=== PATIENT | female | born 1980 | race Hispanic/Latino ===

== ENCOUNTER 2017-09-29 19:58 | Emergency (ER) | payer MEDICAID ==
[2017-09-29] MEDS ORDERED: SIMETHICONE 80 MG TAB.CHEW ONE (20:13)
[2017-09-29] MEDS ORDERED: HYOSCYAMINE SULFATE 0.125 MG TAB.SUBL SL ONE (20:13)
[2017-09-29 20:31] LABS: BASOPHILS % (AUTO) 0.4 % (0.0-5.0); EOSINOPHILS % (AUTO) 0.3 % (0.0-8.0); HEMATOCRIT 39.9 % (36-48); LYMPHOCYTES % (AUTO) 14.1 % (21.0-51.0); MEAN CORPUSCULAR HGB CONC 34.4 g/dL (32.0-36.0); MEAN CORPUSCULAR VOLUME 84.3 fL (79-99); MONOCYTES % (AUTO) 5.3 % (3.0-13.0); NEUTROPHILS % (AUTO) 79.9 % (40.0-77.0); PLATELET COUNT (AUTO) 238 K/uL (130-400); RED BLOOD CELL COUNT(AUTO) 4.73 MIL/uL (4.00-5.50); WHITE BLOOD COUNT (AUTO) 9.4 K/uL (4.8-10.8)
[2017-09-29 20:41] LABS: CREATININE 0.7 mg/dL (0.5-1.5); POTASSIUM 3.3 mmol/L (3.5-5.1)
[2017-09-29 20:46] LABS: ALBUMIN 3.4 g/dL (3.5-5.0); BILIRUBIN,TOTAL 0.4 mg/dL (0.2-1.0); TOTAL PROTEIN, SERUM 7.5 g/dL (6.0-8.3)
== END 2017-09-29 22:06 | disposition home or self-care (01) ==
LOC: EDH 19:58
DX: E87.6 Hypokalemia (principal); R10.84 Generalized abdominal pain; R19.7 Diarrhea, unspecified; R50.9 Fever, unspecified; Z90.49 Acquired absence of other specified parts of digestive tract
CPT/HCPCS: 36415; 80053; 85025

== ENCOUNTER 2018-04-16 07:11 | Day surgery (SDC) | payer MEDICAID ==
[2018-04-14 13:05] VITALS: BP 113/70
[2018-04-14 13:07] LABS: BASOPHILS % (AUTO) 0.4 % (0.0-5.0); EOSINOPHILS % (AUTO) 1.1 % (0.0-8.0); HEMATOCRIT 41.2 % (36-48); LYMPHOCYTES % (AUTO) 34.8 % (21.0-51.0); MEAN CORPUSCULAR HEMOGLOBIN 29.8 pg (27.0-33.0); MEAN CORPUSCULAR HGB CONC 34.6 g/dL (32.0-36.0); MEAN CORPUSCULAR VOLUME 86.1 fL (79-99); MONOCYTES % (AUTO) 6.6 % (3.0-13.0); NEUTROPHILS % (AUTO) 57.1 % (40.0-77.0); PLATELET COUNT (AUTO) 255 K/uL (130-400); RED BLOOD CELL COUNT(AUTO) 4.78 MIL/uL (4.00-5.50); RED CELL DISTRIBUTION WIDTH 12.9 % (11.0-15.5); WHITE BLOOD COUNT (AUTO) 7.9 K/uL (4.8-10.8)
[2018-04-16] VITALS (16 sets, daily range): BP systolic 103–122; BP diastolic 62–74
[~2018-04-16] VITALS: Ht 165.1 cm; Wt 79.7 kg
[2018-04-16] MEDS ORDERED: MIDAZOLAM HCL 1 MG/ML 2ML VIAL ONE (07:36)
[2018-04-16] MEDS ORDERED: DEXAMETHASONE SOD PHOSPHATE 10MG/ML 1ML VIAL ONE (07:36)
[2018-04-16] MEDS ORDERED: GLYCOPYRROLATE 1 MG/5 ML SYRINGE ONE (07:36)
[2018-04-16] MEDS ORDERED: LIDOCAINE PF 2% 5ML ABBOJECT ONE ×2 (07:36→07:38)
[2018-04-16] MEDS ORDERED: PROPOFOL 10 MG/ML 20ML VIAL IV ONE (07:36)
[2018-04-16] MEDS ORDERED: FENTANYL CITRATE PF 50 MCG/1 ML 2ML VIAL ONE (07:37)
[2018-04-16] MEDS ORDERED: ONDANSETRON HCL 4 MG/2 ML VIAL ONE (07:37)
[2018-04-16] MEDS ORDERED: NEOSTIGMINE 5MG/5ML SYR IV ONE (07:37)
[2018-04-16] MEDS ORDERED: ROCURONIUM 10MG/1ML SYR 10 MG/ML ML ONE (07:37)
[2018-04-16] MEDS ORDERED: METOCLOPRAMIDE 10 MG/2 ML VIAL ONE (07:38)
[2018-04-16] MEDS ORDERED: LIDOCAINE HCL 2% JELLY 5 ML ONE (07:42)
[2018-04-16] MEDS ORDERED: CALDOLOR 800MG+NS 250ML 250 ML IV ONE (08:00)
[2018-04-16] MEDS ORDERED: LACTATED RINGERS 1000ML 1,000 ML IV ONE (08:03)
[2018-04-16] MEDS ORDERED: STRONG IODINE SOLUTION 30ML BOTTLE ONE ×2 (08:05→08:26)
[2018-04-16] MEDS ORDERED: MEPERIDINE-PF 25 MG/ML SYG ONE ×2 (10:29→10:40)
== END 2018-04-16 12:10 | disposition home or self-care (01) ==
LOC: SUH 07:11 → DAH 07:11 → SUH 12:10
DX: N87.1 Moderate cervical dysplasia (principal); Z98.890 Other specified postprocedural states; Z79.899 Other long term (current) drug therapy; E66.9 Obesity, unspecified
CPT/HCPCS: 36415; 57520; 84702; 85025; 88307; 96365; A4351; A4510; A4600; J1100; J1741; J2001 ×2; J2175 ×2; J2250; J2405; J2704; J2710; J2765; J3010; J7120 ×2; J3490

== ENCOUNTER 2018-07-31 20:06 | Emergency (ER) | payer MEDICAID ==
[2018-07-31] MEDS ORDERED: AMOXICILLIN 500 MG CAPSULE PO ONE (21:02)
== END 2018-07-31 21:06 | disposition home or self-care (01) ==
LOC: EDH 20:06
DX: S02.5XXA Fracture of tooth (traumatic), initial encounter for closed fracture (principal); X58.XXXA Exposure to other specified factors, initial encounter; Y93.89 Activity, other specified; Y92.89 Other specified places as the place of occurrence of the external cause; Y99.8 Other external cause status

== ENCOUNTER 2022-12-02 12:38 | Emergency (ER) | payer MEDICAID, OTHER ==
[~2022-12-02] VITALS: Ht 167.6 cm; Wt 95.3 kg
[2022-12-02 13:12] LABS: BASOPHILS % (AUTO) 0.3 % (0.0-5.0); EOSINOPHILS % (AUTO) 1.3 % (0.0-8.0); LYMPHOCYTES % (AUTO) 26.6 % (21.0-51.0); MEAN CORPUSCULAR HEMOGLOBIN 28.6 pg (27.0-33.0); MEAN CORPUSCULAR HGB CONC 33.6 g/dL (32.0-36.0); MEAN CORPUSCULAR VOLUME 85.2 fL (79-99); MONOCYTES % (AUTO) 5.1 % (3.0-13.0); NEUTROPHILS % (AUTO) 65.9 % (40.0-77.0); PLATELET COUNT (AUTO) 381 K/uL (130-400); RED BLOOD CELL COUNT(AUTO) 4.93 MIL/uL (4.00-5.50); RED CELL DISTRIBUTION WIDTH 12.5 % (11.0-15.5); WHITE BLOOD COUNT (AUTO) 11.6 K/uL (4.8-10.8)
[2022-12-02 13:14] LABS: APPEARANCE,URINE CLOUDY (CLEAR); BILIRUBIN,URINE NEGATIVE (NEGATIVE); COLOR,URINE YELLOW (YELLOW); GLUCOSE, URINE (UA) NEGATIVE (NEGATIVE); KETONES,URINE NEGATIVE (NEGATIVE); LEUKOCYTE ESTERASE ,URINE 75 Leu/uL (NEGATIVE); NITRATE,URINE NEGATIVE (NEGATIVE); OCCULT BLOOD,URINE SMALL (NEGATIVE); PROTEIN,URINE 70 mg/dL (NEGATIVE); UROBILINOGEN,URINE 0.2 mg/dL (0.2-1.0)
[2022-12-02 13:15] LABS: HCG,QUALITATIVE URINE NEGATIVE (NEGATIVE)
[2022-12-02 13:18] LABS: BACTERIA,URINE FEW /HPF (None Seen); MUCUS,URINE MANY LPF (None Seen); SQUAMOUS EPITHELIAL CELL,UR MANY /HPF (0-2)
[2022-12-02 13:20] LABS: CREATININE 0.9 mg/dL (0.5-1.5); POTASSIUM 3.6 mmol/L (3.5-5.1)
[2022-12-02 13:25] LABS: ALBUMIN 3.5 g/dL (3.5-5.0); TOTAL PROTEIN, SERUM 7.7 g/dL (6.0-8.3)
[2022-12-02] MEDS ORDERED: CIPR750T17 PO (15:18)
[2022-12-02] MEDS ORDERED: ONDA4TAB10 PO (15:18)
[2022-12-02] MEDS ORDERED: TRAM50TA4 PO (15:18)
[2022-12-02] MEDS ORDERED: LOPE2TAB26 PO (15:18)
[2022-12-02 15:51] VITALS: BP 138/88
== END 2022-12-02 15:57 | disposition home or self-care (01) ==
LOC: EDH 12:38
DX: G89.29 Other chronic pain (principal); M54.50 Low back pain, unspecified; K52.9 Noninfective gastroenteritis and colitis, unspecified; M19.90 Unspecified osteoarthritis, unspecified site; Z90.49 Acquired absence of other specified parts of digestive tract
CPT/HCPCS: 36415; 80053; 81001; 81025; 83690; 85025; 87088

== ENCOUNTER 2024-04-18 04:42 | Emergency (ER) | payer MEDICAID, OTHER ==
[~2024-04-18] VITALS: Ht 167.6 cm; Wt 104.3 kg
[~2024-04-18 04:42] MED LIST: CIPR750T17 PO; LOPE2TAB26 PO; ONDA-243 PO; TRAM50TA4 PO
[2024-04-18 05:37] LABS: BASOPHILS # (AUTO) 0.03 K/uL (0.00-0.20); BASOPHILS % (AUTO) 0.3 % (0.0-5.0); EOSINOPHILS # (AUTO) 0.07 K/uL (0.00-0.70); EOSINOPHILS % (AUTO) 0.6 % (0.0-8.0); HEMATOCRIT 41.6 % (36-48); IMMATURE GRANULOCYTE ABSOLUTE 0.07 K/uL (0-1); LYMPHOCYTES # (AUTO) 1.8 K/uL (1.0-4.8); LYMPHOCYTES % (AUTO) 14.9 % (21.0-51.0); MEAN CORPUSCULAR HEMOGLOBIN 28.5 pg (27.0-33.0); MEAN CORPUSCULAR HGB CONC 33.4 g/dL (32.0-36.0); MEAN CORPUSCULAR VOLUME 85.2 fL (79-99); MONOCYTES # (AUTO) 0.8 K/uL (0.1-1.0); MONOCYTES % (AUTO) 6.6 % (3.0-13.0); NEUTROPHILS # (AUTO) 9.2 K/uL (1.8-7.7); PLATELET COUNT (AUTO) 268 K/uL (130-400); RED BLOOD CELL COUNT(AUTO) 4.88 MIL/uL (4.00-5.50); RED CELL DISTRIBUTION WIDTH 12.5 % (11.0-15.5); WHITE BLOOD COUNT (AUTO) 11.9 K/uL (4.8-10.8)
[2024-04-18 05:46] LABS: CREATININE 0.8 mg/dL (0.5-1.0); POTASSIUM 4.1 mmol/L (3.5-5.1); RAPID GROUP A STREP negative (NEGATIVE)
[2024-04-18 05:52] LABS: SARS-CoV-2, RNA, NAAT NEGATIVE SARS CoV-2 (NEGATIVE)
[2024-04-18 05:56] LABS: INFLUENZA TYPE A Negative For Type A (NEGATIVE); INFLUENZA TYPE B Negative For Type B (NEGATIVE)
[2024-04-18 06:04] LABS: B-TYPE NATRIURETIC PEPTIDE 5 pg/mL (0-100)
[2024-04-18] MEDS: Solu-medROL 125MG VIAL IVP ONE (06:04)
[2024-04-18] MEDS: 0.9%NACL 1000ML 1,000 ML IV ONE (06:04)
--- NOTE | 2024-04-18 06:26 | ERN ---
General Chief Complaint: Multiple Complaints Stated Complaint: FEVER, BODY ACHES Time Seen by MD: 04:46 History of Present Illness Initial Comments Ms. Welch is a very pleasant 43-year-old female who comes in today with a chief complaint of fever chills cough for the last 3 days. Patient went to outside facility where she was swabbed and was negative for any viral infections according to her. Patient reports that they did not do any extensive workup. Patient comes in with recurrent fevers cough and rib pain. Allergies: Coded Allergies: No Known Drug Allergies (Unverified Allergy, Unknown, 04/14/18) Home Meds Active Scripts Tramadol Hcl (Tramadol HCl) 50 Mg Tablet, 50 MG PO QID for pain, #10 TAB 0 Refills Prov:ROMEL MORALES MD 12/02/22 Loperamide HCl (Loperamide) 2 Mg Tablet, 2 MG PO 5X/DAY for with every diarrhea, #12 TAB 0 Refills Prov:ROMEL MORALES MD 12/02/22 Ondansetron (Ondansetron Odt) 4 Mg Tab.rapdis, 4 MG PO Q6H for nausea, #10 TAB 0 Refills Prov:ROMEL MORALES MD 12/02/22 Ciprofloxacin HCl (Cipro) 750 Mg Tab, 750 MG PO BID for 3 Days, #6 TAB 0 Refills Prov:ROMEL MORALES MD 12/02/22 Past Medical History Past Medical History: Arthritis Medical History Other: KIDNEY CYST, CHRONIC BACK PAIN Past Surgical History: Appendectomy Social History Social History: Negative ROS Dictation Constitutional: Positive for fever Eyes: Negative for injury, pain,redness, and discharge ENT: Negative for injury,pain or swelling Cardiovascular: Negative for chest pain, palpitations, and edema Respiratory: Positive for cough Abdomen/GI: Negative for abdominal pain, nausea, vomiting, diarrhea, and constipation Back: Negative for injury and pain : Negative for injury, bleeding and discharge MS/Extremity: Negative for injury and deformity Skin: Negative for rash, and discoloration Neuro: Negative for headache, weakness, numbness, tingling, and seizure Psych: Negative for suicide ideation, homicidal ideation, and hallucinations Physical Exam Physical Exam Dictation General: awake, alert, NAD Head/Face: Normocephalic, atraumatic Eyes: PERRL, EOMI, vision at baseline ENT: oral cavity clear Neck: Trachea midline, supple Cardiovascular: RRR, normal S1/S2, No MRGs, no JVD Respiratory: CTAB, no respiratory distress, No rales or wheezes Abdomen: Soft, non-tender, non-distended, normal bowel sounds, no guarding or rebound. Skin: Warm, dry, normal turgor, no rash MS/Extremity: Pulses equal, no cyanosis, neurovascular intact, FROM Neuro: COAx4, GCS 15 Psych: Normal behavior Results Laboratory and Microbiology Lab and Micro Result Laboratory Tests Test 04/18/24 05:24 White Blood Count 11.9 K/uL (4.8-10.8) H Red Blood Count 4.88 MIL/uL (4.00-5.50) Hemoglobin 13.9 g/dL (12.0-16.0) Hematocrit 41.6 % (36-48) Mean Corpuscular Volume 85.2 fL (79-99) Mean Corpuscular Hemoglobin 28.5 pg (27.0-33.0) Mean Corpuscular Hemoglobin Concent 33.4 g/dL (32.0-36.0) Red Cell Distribution Width 12.5 % (11.0-15.5) Platelet Count 268 K/uL (130-400) Mean Platelet Volume 10.4 fL (7.5-10.5) Immature Granulocyte % (Auto) 0.6 % (0-1) Neutrophils (%) (Auto) 77.0 % (40.0-77.0) Lymphocytes (%) (Auto) 14.9 % (21.0-51.0) L Monocytes (%) (Auto) 6.6 % (3.0-13.0) Eosinophils (%) (Auto) 0.6 % (0.0-8.0) Basophils (%) (Auto) 0.3 % (0.0-5.0) Neutrophils # (Auto) 9.2 K/uL (1.8-7.7) H Lymphocytes # (Auto) 1.8 K/uL (1.0-4.8) Monocytes # (Auto) 0.8 K/uL (0.1-1.0) Eosinophils # (Auto) 0.07 K/uL (0.00-0.70) Basophils # (Auto) 0.03 K/uL (0.00-0.20) Absolute Immature Granulocyte (auto 0.07 K/uL (0-1) Nucleated Red Blood Cells 0.0 % (0.0-0.19) Sodium Level 138 mmol/L (136-145) Potassium Level 4.1 mmol/L (3.5-5.1) Chloride Level 102 mmol/L (101-111) Carbon Dioxide Level 28 mmol/L (21-32) Blood Urea Nitrogen 8 mg/dL (7-18) Creatinine 0.8 mg/dL (0.5-1.0) Glomerular Filtration Rate Calc 94 mL/min (>90) Random Glucose 118 mg/dL (70-105) H Total Calcium 9.0 mg/dL (8.5-10.1) B-Type Natriuretic Peptide 5 pg/mL (0-100) Influenza Type A Antigen Negative For Type A Influenza Type B Antigen Negative For Type B SARS-CoV-2, RNA, NAAT NEGATIVE SARS CoV-2 Group A Streptococcus Rapid negative (NEGATIVE) MDM Care will be transferred to Dr. Ena HANDLEY: I took over care at 0700. CC: rib & back pain, cough, fever x 3 days. Comorbidities: obesity VS: febrile, tachycardic 116. BP stable, O2 stable. Ddx: pneumonia, sepsis, viral uri, etc. Labs (ordered & intepreted by me): leukocytosis 11.9. No shift or bands, otherwise CBC normal. BMP normal, BNP normal. Flu & SARS neg. CXR (independently interpreted by me): mild congestion, no cardiomegally, no focal infiltrates. no effusions. Treatment in ED: 1L NS, 125mg methylprednisone, 1g rocephin, 500mg azithromycin. Will treat as community aquired pneumonia. Patient agreeable. Will DC w/ prescription for azithromycin, also recommend over the counter cold & flu medications and PCP f/u in 48 hours. ED Course Orders Procedure Category Date Status Time Cbc With Differential LAB 04/18/24 Complete 05:09 B-Type Natriuretic LAB 04/18/24 Complete Peptide 05:09 Chest 1vw RAD 04/18/24 Taken 05:09 12 Lead Ekg Tracing- EKG 04/18/24 Logged Technical 05:09 0.9%Nacl 1000ml (Ns PHA 04/18/24 In Process 1000ml) 05:30 Methylprednisolone PHA 04/18/24 Complete Succ 125mg (Solu-Medr 05:30 Basic Metabolic Panel LAB 04/18/24 Complete 05:09 Covid Rna Naat LAB 04/18/24 Complete 05:09 Rapid (Group A Strep) LAB 04/18/24 Complete 05:09 Influenza Type A & B, LAB 04/18/24 Complete Rapid 05:09 Ceftriaxone 1g Vial PHA 04/18/24 Complete (Rocephine 1g Inj) 07:30 Azithromycin PHA 04/18/24 Complete (Zithromax) 07:30 Lactic Acid LAB 04/18/24 In Process 07:17 Blood Cult TRAVIS 04/18/24 Logged 07:17 Acetaminophen 500mg PHA 04/18/24 Complete Tab (Tylenol 500mg T 07:30 Current Medications Medications (Trade) Dose Ordered Sig/Forest Route PRN Reason Start Time Stop Time Status Last Admin Dose Admin Acetaminophen (TYLenol 500MG TAB) 1,000 mg ONCE ONCE PO 04/18/24 07:30 04/18/24 07:32 DC 04/18/24 07:36 Azithromycin (Zithromax) 500 mg ONCE ONCE PO 04/18/24 07:30 04/18/24 07:31 DC 04/18/24 07:38 Ceftriaxone Sodium (ROCEphine 1G INJ) 1 gm ONCE ONCE IVPB 04/18/24 07:30 04/18/24 07:31 DC 04/18/24 07:38 Methylprednisolone Sodium Succinate (Solu-medROL 125MG) 125 mg ONCE ONCE IVP 04/18/24 05:30 04/18/24 05:31 DC 04/18/24 06:04 Sodium Chloride 1,000 ml @ 125 mls/hr ONCE ONCE IV 04/18/24 05:30 04/18/24 13:29 04/18/24 06:04 Vital Signs Date Time Temp Pulse Resp B/P (MAP) Pulse Ox O2 Delivery O2 Flow Rate FiO2 04/18/24 07:36 102.4 04/18/24 07:13 102.4 103 17 134/70 96 Room Air* 0 04/18/24 06:00 99.9 110 20 121/72 97 Room Air* 0 04/18/24 04:59 100.2 116 17 133/87 99 Room Air 0 04/18/24 04:52 100.2 116 17 133/87 99 Room Air* 0 21 DX & DISP Disposition: Discharge Departure Impression: Primary Impression: Community acquired pneumonia Condition: Stable Scripts Azithromycin (Azithromycin) 250 Mg Tablet 1 TAB PO AD for 5 Days, #6 TAB 0 Refills 2 the first day followed by 1 for days 2-5 Prov: LEILANI HANDLEY DO 04/18/24 Additional Instructions: Your symptoms are consistent with community acquired pneumonia. Your labwork shows an elevated WBC count consistent with inflammation, but is otherwise unremarkable. Your chest x-ray shows some mild congestion. The flu & COVID swabs are negative. You received IV rocephin and azithromycin here in the ED. These are antibiotics for your infection. I have prescribed azithromycin, which is an antibiotic. Take as prescribed. You can take over the counter cold & flu medications as needed. I recommend tylenol and ibuprofen as well for fever. Drink plenty of liquids. Please follow up with your primary doctor on Saturday for re-evaluation. Return to the emergency department sooner if you have any concerning symptoms. Referrals: LAUREN GUZMAN MD (PCP) TORSTEN ANTHONY MD Apr 18, 2024 06:26 LEILANI HANDLEY DO Apr 18, 2024 08:13
--- NOTE | 2024-04-18 07:13 | NUR ---
got report from Esme Monteiro
[2024-04-18 07:36] VITALS: TEMP 102.4
[2024-04-18] MEDS: acetaMINOPHEN 500 MG TABLET PO ONE (07:36)
[2024-04-18] MEDS: cefTRIAXone 1G VIAL IVPB ONE (07:38)
[2024-04-18] MEDS: AZITHROMYCIN 250 MG TABLET PO ONE (07:38)
[2024-04-18] MEDS ORDERED: AZIT250T9 PO (08:13)
[2024-04-18 08:36] VITALS: BP 113/71; PULSE 103; RESP 17; TEMP 99.4; O2SAT 98
--- NOTE | 2024-04-18 08:46 | HMCIMG ---
Exam Type: CHEST 1VW Clinical Information: Dyspnea/SOB Comparison: None Findings: The lungs are clear of infiltrates. The heart is normal in size. The bony and soft tissue structures of the chest are unremarkable. Impression: Clear lungs.
--- NOTE | 2024-04-18 09:11 | EKG ---
[facility] Test Date: 2024-04-18 Test Time: 05:44:06 Pat Name: JAMES ROCK Department: [facility] Room: Gender: F Certified Ophthalmic Medical Technician: laquita lópez : 1980 Requested By: TORSTEN ANTHONY Order Number: [id number] Reading MD: Geoff Chiu Measurements Intervals [address] Rate: 106 P: 28 UT: 153 QRS: -5 QRSD: 93 T: 2 QT: 319 QTc: 423 Interpretive Statements Incomplete analysis due to missing data in precordial lead(s) Sinus tachycardia Compared to ECG 11/21/2016 16:49:52 Sinus rhythm no longer present Electronically Signed On 04-18-2024 11:52:[address] [employer] by Geoff Chiu Please click the below link to view image of tracing.
== END 2024-04-18 08:56 | disposition home or self-care (01) ==
LOC: EDH 04:42
DX: J18.9 Pneumonia, unspecified organism (principal); M19.90 Unspecified osteoarthritis, unspecified site; Z90.49 Acquired absence of other specified parts of digestive tract; Z20.822 Contact with and (suspected) exposure to COVID-19
CPT/HCPCS: 99285; 96365; 96361; 71045; 87635; 96375; 80048; 83880; 85025; 87040 ×2; 87880; 87804 ×2; 83605; 36415; 93005; J7030; J2919; J0696